=== PATIENT | male | born 1955 | race Caucasian/White ===

== ENCOUNTER 2017-07-12 06:16 | Day surgery (SDC) | payer OTHER ==
[~2017-07-12 06:16] MED LIST: CEFAZOLIN 2 GM/50 ML (PMX) 50 ML IVPB; SOD CHLORIDE 0.9% 1,000 ML IV
[2017-07-12 07:36] LABS: ADD MAN DIFF? NO
[2017-07-12 07:39] LABS: BASOPHILS % 0.6 % (0.0-2.0); EOSINOPHILS # 0.3 10^3/ul (0.0-0.5); EOSINOPHILS % 3.7 % (0.0-7.0); HEMATOCRIT 42.6 % (42.0-52.0); LYMPHOCYTES # 1.9 10^3/ul (0.8-2.9); LYMPHOCYTES % 26.4 % (15.0-51.0); MEAN CORPUSCULAR HEMOGLOBIN 31.8 pg (29.0-33.0); MEAN CORPUSCULAR HGB CONC 35.2 g/dl (32.0-37.0); MEAN CORPUSCULAR VOLUME 90.3 fl (82.0-101.0); MEAN PLATELET VOLUME 10.7 fl (7.4-10.4); MONOCYTE # 0.7 10^3/ul (0.3-0.9); MONOCYTES % 10.2 % (0.0-11.0); NEUTROPHIL # 4.1 10^3/ul (1.6-7.5); NEUTROPHILS % 58.7 % (39.0-77.0); PLATELET COUNT 228 10^3/UL (140-415); RED BLOOD COUNT 4.72 10^6/ul (4.70-6.10)
[2017-07-12 07:39] LABS: WHITE BLOOD COUNT 7.1 10^3/ul (4.8-10.8)
[2017-07-12] MEDS ORDERED: NEOSTIGMINE 3 MG/3 ML SYRINGE (08:54)
[2017-07-12] MEDS ORDERED: GLYCOPYRROLATE 0.4 MG INJ (08:54)
[2017-07-12] MEDS ORDERED: PROPOFOL 20 ML (08:54)
[2017-07-12] MEDS ORDERED: CEFAZOLIN 1 GM INJ (08:54)
[2017-07-12] MEDS ORDERED: ROCURONIUM 50 MG INJ (08:54)
[2017-07-12] MEDS ORDERED: DEXAMETHASONE 4 MG/ML 1 ML INJ (08:57)
[2017-07-12] MEDS ORDERED: MIDAZOLAM 1 MG/ML 2 ML INJ (08:57)
[2017-07-12] MEDS ORDERED: ONDANSETRON 4 MG INJ ×2 (08:57→10:41)
[2017-07-12] MEDS ORDERED: FENTAnyl 50 MCG/ML VIAL (08:57)
[2017-07-12] MEDS ORDERED: SUGAMMADEX SODIUM 200 MG/2 ML VIAL IV (10:20)
[2017-07-12] MEDS: BUPIVACAINE 0.25% (MPF) 30 ML INJ (10:34)
[2017-07-12] MEDS ORDERED: HYDROmorphONE (0.2 MG/ML) 10ML SYG IV ×2 (10:41→11:00)
[2017-07-12] MEDS: HYDROCODONE/APAP (5/325) TAB PO (10:54)
[2017-07-12] MEDS: HYDROmorphONE (0.2 MG/ML) 10ML SYG IV ×2 (11:03→11:18)
== END 2017-07-12 13:40 | disposition home or self-care (01) ==
LOC: SDS 06:16
DX: K60.3 Anal fistula (principal); I10 Essential (primary) hypertension
CPT/HCPCS: 46270; 85025; 88304

== ENCOUNTER 2018-01-31 05:50 | Day surgery (SDC) | payer OTHER ==
[2018-01-31] MEDS ORDERED: CEFAZOLIN 1 GM/50 ML (PMX) 50 ML IVPB (06:00)
[2018-01-31] MEDS: SOD CHLORIDE 0.9% 1,000 ML IV (06:00)
[2018-01-31 06:57] LABS: ADD MAN DIFF? NO
[2018-01-31] MEDS ORDERED: ONDANSETRON 4 MG INJ (07:00)
[2018-01-31] MEDS ORDERED: DEXAMETHASONE 4 MG/ML 1 ML INJ (07:00)
[2018-01-31 07:10] LABS: BASOPHIL # 0.1 10^3/ul (0.0-0.1); BASOPHILS % 0.7 % (0.0-2.0); EOSINOPHILS # 0.2 10^3/ul (0.0-0.5); EOSINOPHILS % 2.3 % (0.0-7.0); HEMATOCRIT 41.8 % (42.0-52.0); HEMOGLOBIN 14.6 g/dl (14.0-18.0); LYMPHOCYTES % 24.3 % (15.0-51.0); MEAN CORPUSCULAR HEMOGLOBIN 31.5 pg (29.0-33.0); MEAN CORPUSCULAR HGB CONC 34.9 g/dl (32.0-37.0); MEAN CORPUSCULAR VOLUME 90.3 fl (82.0-101.0); MEAN PLATELET VOLUME 10.9 fl (7.4-10.4); MONOCYTE # 0.8 10^3/ul (0.3-0.9); MONOCYTES % 9.4 % (0.0-11.0); NEUTROPHIL # 5.2 10^3/ul (1.6-7.5); NEUTROPHILS % 62.8 % (39.0-77.0); PLATELET COUNT 215 10^3/UL (140-415); RED BLOOD COUNT 4.63 10^6/ul (4.70-6.10); RED CELL DISTRIBUTION WIDTH 11.9 % (11.5-14.5)
[2018-01-31 07:10] LABS: WHITE BLOOD COUNT 8.3 10^3/ul (4.8-10.8)
[2018-01-31 07:28] LABS: ALANINE AMINOTRANSFERASE 68 IU/L (13-69); ALBUMIN 4.2 g/dl (3.3-4.9); ALBUMIN/GLOBULIN RATIO 1.44; ALKALINE PHOSPHATASE 74 IU/L (42-121); ANION GAP 12 (5-13); ASPARTATE AMINO TRANSFERASE 48 IU/L (15-46); BILIRUBIN,INDIRECT 0.5 mg/dl (0-1.1); BILIRUBIN,TOTAL 0.5 mg/dl (0.2-1.3); BLOOD UREA NITROGEN 9 mg/dl (7-20); CARBON DIOXIDE 25 mmol/L (21-31); CHLORIDE 103 mmol/L (97-110); CREATININE 0.71 mg/dl (0.61-1.24); Estimated GFR > 60 mL/min (>60); GLUCOSE 109 mg/dl (70-220); POTASSIUM 3.5 mmol/L (3.5-5.1); SODIUM 140 mmol/L (135-144); TOTAL PROTEIN 7.1 g/dl (6.1-8.1)
[2018-01-31 07:29] LABS: INR 0.92; PROTIME 12.4 Sec (11.9-14.9)
[2018-01-31 07:30] LABS: PARTIAL THROMBOPLASTIN TIME 29.3 Sec (23.0-35.0)
[2018-01-31] MEDS: BUPIVACAINE 0.25% (MPF) 30 ML INJ (08:03)
[2018-01-31] MEDS ORDERED: PROPOFOL 20 ML (08:09)
[2018-01-31] MEDS ORDERED: LIDOCAINE 2% (SDV) 5 ML INJ (08:10)
[2018-01-31] MEDS ORDERED: ROCURONIUM 50 MG INJ (08:10)
[2018-01-31] MEDS ORDERED: CEFAZOLIN 1 GM INJ (08:50)
[2018-01-31] MEDS ORDERED: SUGAMMADEX SODIUM 200 MG/2 ML VIAL IV (09:19)
[2018-01-31] MEDS ORDERED: ONDANSETRON 4 MG INJ IV (09:30)
[2018-01-31] MEDS ORDERED: HYDROmorphONE 1 MG/5 ML IV SYRINGE IV ×2 (09:30)
[2018-01-31] MEDS ORDERED: ALBUTEROL 0.083% (NEB) 2.5 MG/3 ML AMP HHN (09:30)
[2018-01-31] MEDS ORDERED: FENTAnyl 50 MCG/ML VIAL IV ×3 (09:30)
[2018-01-31] MEDS ORDERED: OXYCODONE/ACETAMINOPHEN (5/325) TAB PO ×2 (09:30)
[2018-01-31] MEDS ORDERED: hydrALAzine 20 MG INJ IV (09:30)
[2018-01-31] MEDS ORDERED: LABETALOL HCL 20MG INJ IV (09:30)
[2018-01-31] MEDS ORDERED: KETOROLAC 30 MG INJ IV (09:30)
[2018-01-31] MEDS ORDERED: MEPERIDINE 25 MG INJ IV (09:30)
[2018-01-31] MEDS ORDERED: EPHEDrine SULFATE 50 MG/5 ML SYG IV (09:30)
[2018-01-31] MEDS ORDERED: DIPHENHYDRAMINE 50 MG INJ IV (09:30)
[2018-01-31] MEDS: HYDROCODONE/APAP (5/325) TAB PO (09:53)
[2018-01-31] MEDS: HYDROmorphONE 1 MG/5 ML IV SYRINGE IV ×2 (09:53→10:05)
== END 2018-01-31 11:00 | disposition home or self-care (01) ==
LOC: SDS 05:50
DX: K60.3 Anal fistula (principal)
CPT/HCPCS: 46270; 80053; 85025; 85610; 85730; 88304